=== PATIENT | female | born 1955 | race Caucasian/White ===

== ENCOUNTER 2018-11-05 13:25 | Emergency (ER) | payer MEDICARE, OTHER ==
[2018-11-05] MEDS ORDERED: PROPARACAINE 0.5% OP STA (13:30)
[2018-11-05] MEDS ORDERED: OPTH IRRIGATION SOLUTION 120 ML BTL OP ONE (13:31)
[2018-11-05] MEDS ORDERED: PROPARACAINE 0.5% OP ONE (13:31)
[2018-11-05] MEDS ORDERED: OPTH IRRIGATION SOLUTION 120 ML BTL OP STA (13:31)
--- NOTE | 2018-11-05 13:52 | ED Physician Documentation ---
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 pt presents to the ED via POV with c/o Right eye burning after rubbing her husbands back with capsin cream then rubbing her eye. she wears contact lens and feels it could be in her upper eye lid. pt reports she irrigated her eye at home. denies loss of vision or visual disturbances. denies other symptoms or complaints. pt denies current chest pain, dyspnea, syncope/near syncope, headache, dizziness, visual disturbances, n/v/d, fever/chills, rash, sick contacts, dysuria, trauma. melena or hematochezia, bleeding or easy bruising, change in bowel or bladder function, no recent weight loss/gain, anxiety or depression. ROS Negative unless otherwise specified. Associated symptoms: burining, redness (mild). denies: matting, eyelid swelling Location: right eye Severity: moderate Apparent Injury: possibly - ROS CONST: no problems - PAST HX Past History: other (hyperlipidemia ) Allergies/Adverse Reactions: Allergies Allergy/AdvReac Type Severity Reaction Status Date / Time Sulfa (Sulfonamide Allergy Verified 11/05/18 13:57 Antibiotics) Home Medications: Ambulatory Orders Medication Instructions Recorded Aspirin [Kathrin] 81 mg PO DAILY 11/05/18 Simvastatin 40 mg PO HS 11/05/18 - SOCIAL HX Smoking History: non-smoker Alcohol Use: none Drug Use: none - FAMILY HX Family History: no significant history - REVIEWED ASSESSMENTS Nursing Assessment Reviewed: Yes Vitals Reviewed: Yes Procedures - Eye Procedure Alcaine Drops Administered: No (Propracaine ) Eye FB Removal: other Eye Irrigated w/ Saline (ccs): 100 Progress: 2 gtts of 0.5% Proparacaine placed in right eye. Upper lid everted No FB visualized Right eye Fluorescein stained. 2-3mm corneal abrasion seen at the 6 oclock position with black light. Right eye rinsed with copious eye wash. Pt tolerated well. Eye Problem Physical Exam - Physical Exam General Appearance: no acute distress Visual Acuity: see nursing assessment, no globe trauma Eyelids: nml inspection, everted for exam (R), erythema (R). No: foreign body under eyelid (R), foreign body under eyelid (L), subcutaneous orbital emphysema, edema (R), edema (L), everted for exam (L), stye (R), ecchymosis Conjunctiva and Sclera: injected (R). No: injected (L), exudate (R), exudate (L), foreign material (R), foreign material (L), subconjunctival hemorrhage (R), subconjunctival hemorrhage (L), scleral icterus Corneas: abrasion (R), fluorescein dye uptake (R), examined with fluorescein (R). No: foreign body (R), foreign body (L), fluorescein dye uptake (L), examined with fluorescein (L), corneal ulcer (R), corneal ulcer (L) EOM: intact Pupils: equal Head/ENT: nml inspection, pharynx nml Skin: nml color, warm, skin intact Respiratory: no resp distress CVS: equal pulses Abdomen: No: guarding Neuro/Psych: oriented x3, neuro intact, mood/affect nml Discharge Clincal Impression: Corneal abrasion due to contact lens Qualifiers: Laterality: right Qualified Code(s): H18.821 - Corneal disorder due to contact lens, right eye Referrals: Primary Doctor,No [Primary Care Provider] - 2 Days Additional Instructions: ofloxacin 0.5% solution ophthalmic: 1-2 drops every 2 hours while awake for 2 days then every 6 hours for 5 days. norco 5/325 1-2 every 4-6 hours as needed for pain. zofran 4 mg every 6 hours as needed for nausea. Follow up with ophthalmology in 2-3 days or before if worse. seek medical care immediately if loss of vision, increased eye pain, difficult to wake or weak, difficulty breathing, feeling faint or fainting, increased rash, chest pain, shortness of breath, or any concern. follow up with primary care next week or before if not improving as expected. PLEASE UNDERSTAND THAT THIS IS AN EMERGENCY EVALUATION FOR YOUR COMPLAINT AND BY NATURE IS LIMITED AND NOT A SUBSTITUTE FOR ONGOING MEDICAL CARE. EVEN THOUGH TEST RESULTS AND TREATMENT PLAN WERE EXPLAINED THERE MAY BE A NEED FOR ADDITIONAL TESTING TO FULLY DETERMINE THE EXTENT OF YOUR ILLNESS/INJURY/OR CO NCERN SO YOU SHOULD CONTACT AND OR ESTABLISH WITH A PRIMARY CARE PROVIDER (OR REFERRAL DOCTOR IF APPLICABLE) FOR AN APPOINTMENT SOON POSSIBLE Condition: Good Disposition: 01 HOME, SELF-CARE Decision to Admit: NO Date of Decison to Admit: 11/05/18 Decision Time: 13:52
[2018-11-05 13:57] VITALS: BP 125/72
== END 2018-11-05 14:19 | disposition home or self-care (01) ==
LOC: ED 13:25
DX: H18.821 Corneal disorder due to contact lens, right eye (principal)
CPT/HCPCS: 99283

== ENCOUNTER 2018-11-06 23:52 | Emergency (ER) | payer MEDICARE, OTHER ==
--- NOTE | 2018-11-07 00:35 | ED Physician Documentation ---
General Adult - HISTORIAN Historian: patient - HPI Stated Complaint: "MY RIGHT EYE HURTS AND THE DROPS ARE NOT HELPING Chief Complaint: Eye Problems Onset: days ago (2) Timing: better Severity: mild Further Comments: yes (She states that she had a capsasin on her finger and while putting contact in her right eye believes she tore her corenea. She has no increased pain and denies any changes in vision. She is worried about the eye drop she was given and some mild burning with use. She also notes at a point yesterday her inner upper lip felt "wrinkled" she denies any issues at this time with her lip but was curious what that might be) Last known Well Code/Unknown Code: Unknown - ROS CONST: no problems EYES/ENT: denies: problems with vision MS/SKIN/LYMPH: denies: rash - PAST HX Past History: none Immunizations: UTD Allergies/Adverse Reactions: Allergies Allergy/AdvReac Type Severity Reaction Status Date / Time Sulfa (Sulfonamide Allergy Verified 11/05/18 13:57 Antibiotics) Home Medications: Ambulatory Orders Medication Instructions Recorded Aspirin [Kathrin] 81 mg PO DAILY 11/05/18 Simvastatin 40 mg PO HS 11/05/18 - SOCIAL HX Smoking History: non-smoker Alcohol Use: none Drug Use: none - FAMILY HX Family History: No - VITAL SIGNS Vital Signs: Vital Signs Temp Pulse Resp BP Pulse Ox 97.8 F 70 12 112/78 99 11/06/18 23:55 11/06/18 23:55 11/06/18 23:55 11/06/18 23:55 11/06/18 23:55 - REVIEWED ASSESSMENTS Nursing Assessment Reviewed: Yes Vitals Reviewed: Yes General Adult Physical Exam - PHYSICAL EXAM GENERAL APPEARANCE: no distress EENT: eye inspection normal, ENT inspection normal, no signs of dehydration, ANUPAMA NECK: normal inspection RESPIRATORY: no resp distress, chest non-tender, breath sounds normal CVS: reg rate & rhythm, heart sounds normal, equal pulses, no murmur ABDOMEN: soft, no distension SKIN: warm/dry, normal color EXTREMITIES: non-tender, normal range of motion NEURO: oriented X3 Discharge Clincal Impression: Corneal abrasion due to contact lens Qualifiers: Laterality: right Qualified Code(s): H18.821 - Corneal disorder due to contact lens, right eye Referrals: Primary Doctor,No [Primary Care Provider] - 2 Days Comments: Do not use any eye drops further Keep all items out of eye Call [facility] Condition: Stable Disposition: 01 HOME, SELF-CARE Decision to Admit: NO Date of Decison to Admit: 11/07/18 Decision Time: 00:48
[2018-11-07 01:09] VITALS: BP 128/64
== END 2018-11-07 01:07 | disposition home or self-care (01) ==
LOC: ED 23:52
DX: H18.821 Corneal disorder due to contact lens, right eye (principal)
CPT/HCPCS: 99281